=== PATIENT | female | born 1945 | race Caucasian/White ===

== ENCOUNTER 2019-11-16 07:30 | Outpatient (CLI) | payer MEDICARE, SELFPAY ==
--- NOTE | ~2019-11-16 | MM_ITS ---
EXAMINATION: MM screening [facility] w pavan HISTORY: Screening mammogram TECHNIQUE: Craniocaudal and mediolateral oblique 3-D tomosynthesis images were obtained and synthetic 2-D images were generated. Bilateral rotated lateral cc views. CAD analysis was submitted and interp reted. COMPARISON: 07/28/2018, 11/01/2016 bilateral digital screening mammogram examinations BREAST PARENCHYMAL COMPOSITION: The breasts are heterogeneously dense, which may obscure small masses . FINDINGS: Scattered benign calcifications are noted bilaterally. There is no evidence of suspicious m ass, calcification, or architectural distortion to suggest malignancy in either breast. There has bee n no suspicious interval change. IMPRESSION: 1. No mammographic evidence of malignancy. 2. Recommend routine screening mammography in one year. BI-RADS Category 2: Benign finding(s). Reviewed, dictated and finalized at location A.
== END 2019-11-16 07:31 | disposition home or self-care (01) ==
LOC: ANHIMG 07:33
PROVIDERS: PCP Family Medicine; Visit Provider Family Medicine
DX: Z12.31 Encounter for screening mammogram for malignant neoplasm of breast (principal)
CPT/HCPCS: 77063; 77067

== ENCOUNTER 2020-07-18 14:15 | Outpatient (CLI) | payer MEDICARE, SELFPAY ==
--- NOTE | ~2020-07-18 | XR_ITS ---
EXAMINATION: XR chest 2V DATE: 07/18/2020 15:01 INDICATION: Hypertension. Encounter for preprocedural respiratory examination. TECHNIQUE: Frontal and lateral views of the chest were obtained. COMPARISON: Chest 2 views 07/30/2009 FINDINGS: A calcified right lung nodule and calcified right hilar lymph nodes are consistent with old granulomatous disease. No pleural effusion or pneumothorax. The heart size is normal. There are surg ical clips in the abdomen. IMPRESSION: 1. No acute cardiopulmonary disease. Reviewed, dictated and finalized at location B.
--- NOTE | 2020-07-18 14:36 | ECG_ITS ---
Measurements Intervals Freedom Rate: 66 P: 79 VA: 187 QRS: 27 QRSD: 85 T: 65 QT: 392 QTc: 412 Interpretive Statements SINUS RHYTHM WITH SINUS ARRHYTHMIA POSSIBLE LEFT ATRIAL ENLARGEMENT CANNOT RULE OUT SEPTAL INFARCT, AGE INDETERMINATE BORDERLINE T WAVE ABNORMALITY- ANT/HIGH LAT LEADS BASELINE ARTIFACT- II, III, AVR, AVF ABNORMAL ECG Electronically Signed On 07-18-2020 14:47:38 CDT by Cam Hoang D.O.
== END 2020-07-18 14:16 | disposition home or self-care (01) ==
PROVIDERS: PCP Family Medicine; Visit Provider Family Medicine
DX: Z01.818 Encounter for other preprocedural examination (principal); R94.31 Abnormal electrocardiogram [ECG] [EKG]
CPT/HCPCS: 71046; 93005

== ENCOUNTER 2020-10-20 00:51 | Day surgery (SDC) | payer MEDICARE, SELFPAY ==
[2020-10-06 09:52] VITALS: BMI 22.2
[2020-10-20 07:28] VITALS: BP 131/66; PULSE 100; RESP 16; TEMP 36.2; O2SAT 96
[2020-10-20] MEDS: LACTATED RINGERS 1,000 ML 150 ML IV CONT (07:40)
[2020-10-20] MEDS: AMPICILLIN 2 GM/NS 100 ML 2 GM/100 ML BAG IVPB (07:41)
--- NOTE | 2020-10-20 08:05 | WPDANESEPPF ---
Anes - Initial Pre Proc Eval Procedure: Operation Date: 10/20/20 08:45 Proposed Procedures p Colonoscopy - Kael Mack MD Date/Time: 10/20/20 08:05 Surgeon: Kael Mack MD Pre Op Diagnosis: hx of colon polyps Patient Data Age: 75 Gender: F Height: 1.6 m Weight: 56.9 kg Last Vital Signs Temp 36.2 C L 10/20/20 07:28 Pulse 100 10/20/20 07:28 Resp 16 10/20/20 07:28 BP 131/66 10/20/20 07:28 Pulse Ox 96 10/20/20 07:28 Allergies Allergy/AdvReac Type Severity Reaction Status Date / Time Sulfa (Sulfonamide Allergy Rash Verified 10/20/20 07:27 Antibiotics) Latex, Natural Rubber AdvReac rash Verified 10/20/20 07:27 naproxen AdvReac Hives Verified 10/20/20 07:27 Home Medications Medication Instructions Recorded Confirmed Type cyclosporine 0.05 % eye drops 1 drop EACH EYE Q12H 07/27/19 10/20/20 History mesalamine 1,000 mg rectal 1 gm RECTAL DAILY PRN 07/27/19 10/20/20 History suppository atorvastatin 40 mg tablet 40 mg PO DAILY #90 tablet 04/26/20 10/20/20 Rx citalopram 20 mg tablet 20 mg PO DAILY #90 tablet 04/26/20 10/20/20 Rx indapamide 1.25 mg tablet 1.25 mg PO DAILY #90 tablet 04/26/20 10/20/20 Rx acetaminophen [Tylenol Arthritis 650 mg PO Q12H PRN 10/06/20 10/20/20 History Pain] amlodipine 10 mg PO DAILY 10/06/20 10/20/20 History Patient hx anesthesia problems: none Family hx anesthesia problems: none PMFSH Past Medical History Medical History (Updated 10/20/20 @ 08:08 by Eduar Marcum DO) Chronic kidney disease, stage III (moderate) Encounter for dual-energy x-ray absoptiometry review (~07/2013) H/O malignant neoplasm of colon (~2001) Hyperlipidemia Hypertension Malignant neoplasm of kidney, except pelvis (~2000) Surgical History Surgical History (Updated 07/20/20 @ 10:34 by Ingrid Méndez CMA) H/O colonoscopy (~11/2013) H/O hemicolectomy (~2001) History of left knee replacement (~2018) History of nephrectomy (~2000) History of total hysterectomy (~1982) Family History Family History Grandparent Diabetes mellitus Sibling Family history of rheumatoid arthritis Father Family history of elevated blood lipids Carcinoma of colon Family history of coronary artery disease Family history of Hodgkin's lymphoma Other Family history of cardiovascular disease Hypertension Social History Social History Smoking packs per day: 1 Smoking cigarettes per day: 20.0 Years smoked: 15 Smoking pack-years: 15.00 Smoking status: Former smoker Tobacco type: cigarettes Alcohol intake: current Living arrangements: with family Spiritual care concerns: No Anes - Eval Final PreProcedure Day of Procedure 10/20/20 08:05 Patient weight: normal Heart: regular rate and rhythm Lungs: clear to auscultation and normal air movement Airway: Mallampati scale class II Neurological: alert and oriented Last oral intake: >/= 8 hours ASA classification: III Emergent: no Anesthetic plan: proceed Anesthesia type and monitoring: general GIVS and standard monitoring Informed Consent: The patient's anesthetic plan and its attendant risks and benefits were discussed with the patient/family/POA. Questions were solicited and answers provided to the satisfaction of the patient/family/POA.
--- NOTE | 2020-10-20 08:31 | WPDGICN ---
Assessment and Plan Assessment and plan (1) History of colon polyps: Code(s): Z86.010 - Personal history of colonic polyps Status: Acute Assessment and Plan: Patient identified to have adenomatous colon polyp removed from the colon 2018. She presents today for surveillance follow-up colonoscopy. 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 She has been treated with intermittent Canasa suppositories taken as needed. This been less frequent over the last year. (3) H/O malignant neoplasm of colon: Onset Date: ~2001 Code(s): Z85.038 - Personal history of other malignant neoplasm of large intestine Status: Acute Assessment and Plan: Patient has a history of colon cancer status post resection. Appears to be adequately treated with no evidence of residual disease. Plan is for follow-up colonoscopy at 3-5 year intervals in the future. GI Consult Note Consult date/time: 10/20/20 08:31 HPI: Mira Stafford is a 75 year old female presents for surveillance colonoscopy. Patient has a history of colon cancer. Patient has undergone surveillance colonoscopies most recent exam in 2018. At that time she had a colon polyp. Patient received radiation therapy as part of her treatment for colon cancer. She has been identified as having radiation proctitis. Patient reports over the last year has very infrequently required Canasa suppositories. Her family history is noncontributory. She states her current weight appetite and bowel movements are normal. She presents for surveillance colonoscopy. Review of Systems Review of Systems: All systems reviewed & are unremarkable except as noted in HPI and below PMFSH Past Medical History Medical History (Updated 10/20/20 @ 08:33 by Kael Mack MD) Chronic kidney disease, stage III (moderate) Encounter for dual-energy x-ray absoptiometry review (~07/2013) H/O malignant neoplasm of colon (~2001) Hyperlipidemia Hypertension Malignant neoplasm of kidney, except pelvis (~2000) Surgical History Surgical History (Updated 07/20/20 @ 10:34 by Ingrid Méndez CMA) H/O colonoscopy (~11/2013) H/O hemicolectomy (~2001) History of left knee replacement (~2018) History of nephrectomy (~2000) History of total hysterectomy (~1982) Family History Family History Grandparent Diabetes mellitus Sibling Family history of rheumatoid arthritis Father Family history of elevated blood lipids Carcinoma of colon Family history of coronary artery disease Family history of Hodgkin's lymphoma Other Family history of cardiovascular disease Hypertension Social History Social History Smoking packs per day: 1 Smoking cigarettes per day: 20.0 Years smoked: 15 Smoking pack-years: 15.00 Smoking status: Former smoker Tobacco type: cigarettes Alcohol intake: current Living arrangements: with family Spiritual care concerns: No Meds Home Medications and Allergies Home Medications Medication Instructions Recorded Confirmed Type cyclosporine 0.05 % eye drops 1 drop EACH EYE Q12H 07/27/19 10/20/20 History mesalamine 1,000 mg rectal 1 gm RECTAL DAILY PRN 07/27/19 10/20/20 History suppository atorvastatin 40 mg tablet 40 mg PO DAILY #90 tablet 04/26/20 10/20/20 Rx citalopram 20 mg tablet 20 mg PO DAILY #90 tablet 04/26/20 10/20/20 Rx indapamide 1.25 mg tablet 1.25 mg PO DAILY #90 tablet 04/26/20 10/20/20 Rx acetaminophen [Tylenol Arthritis 650 mg PO Q12H PRN 10/06/20 10/20/20 History Pain] amlodipine 10 mg PO DAILY 10/06/20 10/20/20 History Allergies Allergy/AdvReac Type Severity Reaction Status Date / Time Sulfa (Sulfonamide Allergy Rash Verified 10/20/20
[2020-10-20 09:02] VITALS: BP 129/78; PULSE 87; RESP 22; O2SAT 99
[2020-10-20 09:12] VITALS: BP 125/78; PULSE 87; RESP 22; O2SAT 99
[2020-10-20 09:22] VITALS: BP 138/76; PULSE 81; RESP 17; O2SAT 95
== END 2020-10-20 09:28 | disposition home or self-care (01) ==
PROVIDERS: PCP Family Medicine; Visit Provider Internal Medicine Gastroenterology
PROC: 0DJD8ZZ Inspection of Lower Intestinal Tract, Via Natural or Artificial Opening Endoscopic (ICD-10-PCS; CPT 45378; principal; 2020-10-20 08:45)
DX: Z12.11 Encounter for screening for malignant neoplasm of colon (principal); K64.8 Other hemorrhoids; K62.7 Radiation proctitis; Y84.2 Radiological procedure and radiotherapy as the cause of abnormal reaction of the patient, or of later complication, without mention of misadventure at the time of the procedure; Z85.038 Personal history of other malignant neoplasm of large intestine; Z86.010 Personal history of colon polyps; I12.9 Hypertensive chronic kidney disease with stage 1 through stage 4 chronic kidney disease, or unspecified chronic kidney disease; N18.30 Chronic kidney disease, stage 3 unspecified; E78.5 Hyperlipidemia, unspecified; Z85.528 Personal history of other malignant neoplasm of kidney; Z90.49 Acquired absence of other specified parts of digestive tract; Z98.0 Intestinal bypass and anastomosis status; Z87.891 Personal history of nicotine dependence
CPT/HCPCS: G0105; J0290; J2704; J7120

== ENCOUNTER → 2021-11-22 10:56 | Outpatient (CLI) | payer MEDICARE, SELFPAY ==
--- NOTE | ~2021-11-22 | MM_ITS ---
EXAMINATION: MM screening [facility] w [facility] HISTORY: Screening TECHNIQUE: Craniocaudal and mediolateral oblique 3-D tomosynthesis images were obtained and synthetic 2-D images were generated. CAD analysis was submitted and interpreted. COMPARISON: Comparison to multiple prior studies sequentially, with oldest reviewed study dated 07/2013. BREAST PARENCHYMAL COMPOSITION: The breasts are extremely dense, which lowers the sensitivity of mamm ography FINDINGS: There is no evidence of suspicious mass, calcification, or architectural distortion to sugg est malignancy in either breast. There has been no suspicious interval change. IMPRESSION: 1. No mammographic evidence of malignancy. 2. Recommend routine screening mammography in one year. BI-RADS Category 1: Negative Reviewed, dictated and finalized at location A.
--- NOTE | ~2021-11-22 | DEXA_ITS ---
Bone Density Report Name: WARNER BEGUM Age: 76 Sex: Female Ethnicity: White Date of : 1945 Indication: postmenopausal; screening for osteoporosis; height loss; prior fracture; hysterectomy; Referring Provider: Rose Mary Pool Study: Bone densitometry was performed. Exam Date: November 22, 2021 Accession number: [id number] Bone Density: Region BMD T-score Z-score Classification AP Spine (L1-L4) 0.914 -1.2 1.2 Osteopenia Femoral Neck (Left) 0.587 -2.4 -0.3 Osteopenia Total Hip (Left) 0.734 -1.7 0.1 Osteopenia Femoral Neck (Right) 0.588 -2.4 -0.3 Osteopenia Total Hip (Right) 0.719 -1.8 -0.1 Osteopenia Total Hip Mean 0.727 -1.8 0.0 Osteopenia World Health Organization criteria for BMD impression classify patients as: Normal (T-score at or above -1.0), Osteopenia (T-score between -1.0 and -2.5), or Osteoporosis (T-score at or below -2.5). 10-year Fracture Risk(1): Major Osteoporotic Fracture 22% Hip Fracture 6.3% Reported Risk Factors: [place] (), Neck BMD=0.587, BMI=24.3, previous fracture (1) FRAX(R) Version 3.08. Fracture probability calculated for an untreated patient. Fracture probability may be lower if the patient has received treatment. Clinical Information Provided by Patient: Has had a low trauma fracture Has used the following medications: Vitamin D Has the following medical conditions: Hysterectomy, LT KIDNEY CANCER/ REMOVED Patient maximum height was 64 Menopause Age: 40 No regular weight bearing exercise Does not regularly consume dairy products Drinks caffeinated beverages Onset of menses at age 16 Number of children 0 Impression: The patient has low bone mass, based on the Left Femoral Neck T-score. The patient has an estimated ten-year risk of hip fracture of 6.3% and an estimated ten-year risk of major fracture of 22%, based on the WHO FRAX algorithm. The patient has risk factors, including: previous fracture. Discussion: BONE DENSITY IS LOW AT ONE OR MORE SKELETAL SITES. THE PATIENT'S BMD AND CLINICAL RISK FACTORS CONTRIBUTE TO THIS PATIENT'S HIGH RISK OF FRACTURE. This patient's lowest T-score is low at one or more skeletal sites. It meets the World Health Organization's (WHO) criteria for ?low bone mass? (T-score between -1.0 and -2.5). The patient's 10-year risk of hip fracture and 10 year risk of a major osteoporotic fracture as calculated by FRAX exceeds the threshold where pharmacological therapy is recommended by the National Osteoporosis Foundation (NOF). However, all treatment decisions require clinical judgment and consideration of individual patient factors, including patient preferences, comorbidities, previous drug use, risk factors not captured in the FRAX model (e.g., frailty, falls, vitamin D deficiency, increased bone turnover, interval significan
== END ==
PROVIDERS: PCP Family Medicine; Visit Provider Physician Assistant
DX: Z12.31 Encounter for screening mammogram for malignant neoplasm of breast (principal); Z78.0 Asymptomatic menopausal state; M85.88 Other specified disorders of bone density and structure, other site; M85.852 Other specified disorders of bone density and structure, left thigh; M85.851 Other specified disorders of bone density and structure, right thigh
CPT/HCPCS: 77063; 77067; 77080

== ENCOUNTER → 2021-11-27 09:23 | Outpatient (CLI) | payer MEDICARE, SELFPAY ==
--- NOTE | ~2021-11-27 | XR_ITS ---
XR tibia fibula LT 2V DATE: 11/27/2021 09:59 INDICATION: Left leg pain TECHNIQUE: AP and lateral views of the left lower leg COMPARISON: 11/27/2021 left ankle FINDINGS: Status post left medial compartment joint replacement. Osteopenia. No fracture, dislocation, periosteal reaction or bone destruction of the tibia or fibula. IMPRESSION: Osteopenia Status post medial compartment joint replacement Reviewed, dictated and finalized at location B.
--- NOTE | ~2021-11-27 | XR_ITS ---
XR ankle LT 2V DATE: 11/27/2021 09:59 INDICATION: Left leg and ankle pain TECHNIQUE: AP and lateral views of left ankle COMPARISON: None FINDINGS: There is osteopenia. No fracture or dislocation of the ankle or disruption of the ankle mortise. Mild posterior calcaneal enthesopathy. IMPRESSION: Osteopenia Mild posterior calcaneal enthesopathy Reviewed, dictated and finalized at location B.
== END ==
PROVIDERS: PCP Family Medicine; Visit Provider Nurse Practitioner
DX: M85.872 Other specified disorders of bone density and structure, left ankle and foot (principal); M77.32 Calcaneal spur, left foot
CPT/HCPCS: 73590; 73600

== ENCOUNTER → 2022-11-21 10:00 | Outpatient (CLI) | payer MEDICARE, SELFPAY ==
--- NOTE | ~2022-11-21 | XR_ITS ---
EXAMINATION: XR lumbar spine 2-3V DATE: 11/21/2022 10:10 INDICATION: Low back pain TECHNIQUE: Anteroposterior and lateral views of the lumbar spine, and cone-down lateral view of the l umbosacral junction were obtained. COMPARISON: None. FINDINGS: Bone alignment is normal. There is no fracture. There is moderate loss of intervertebral di sc space height at L2-3. The vertebral body heights are maintained. Small degenerative osteophytes pr oject from the anterior endplates of multiple vertebral bodies. There is mild facet joint osteoarthri tis of the lower lumbar spine. Calcified atherosclerosis is noted. There are surgical clips in the pe lvis and left upper quadrant. A moderate volume of colonic stool is present. IMPRESSION: 1. Moderate lumbar spondylosis at L2-3 without acute findings. Reviewed, dictated and finalized at location A.
== END ==
PROVIDERS: PCP Nurse Practitioner Family; Visit Provider Nurse Practitioner Family
DX: M47.816 Spondylosis without myelopathy or radiculopathy, lumbar region (principal)
CPT/HCPCS: 72100

== ENCOUNTER 2023-01-18 09:59 | Outpatient (CLI) | payer MEDICARE, SELFPAY ==
[2023-01-18 10:20] LABS: Basophils Absolute Auto 0.1 K/mm3 (0.0-0.1); Basophils Percent Auto 1.3 % (0.2-1.2); Eosinophils Absolute Auto 0.1 K/mm3 (0-0.3); Hematocrit 41.8 % (37.0-47.0); Hemoglobin 13.9 g/dL (12.0-15.0); Immature Granulocyte Absolute 0.01 K/mm3 (0.00-0.031); Immature Granulocyte Percent A 0.2 % (0-0.5); Lymphocytes Absolute Auto 1.53 K/mm3 (0.9-3.2); Lymphocytes Percent Auto 27.8 % (18.3-44.2); Mean Corpuscular HGB Conc 33.3 g/dl (32-36); Mean Corpuscular Hemoglobin 31.7 pg (26-34); Mean Corpuscular Volume 95.2 fl (80-100); Mean Platelet Volume 8.9 fl (7.4-10.4); Monocytes Absolute Auto 0.6 K/mm3 (0.1-0.6); Monocytes Percent Auto 10.3 % (2.6-8.5); Neutrophils Absolute Auto 3.2 K/mm3 (1.3-6.7); Neutrophils Percent Auto 58.4 % (45.5-73.1); Platelet Count Result 256 k/mm3 (150-375); Red Blood Count 4.39 M/mm3 (4.2-5.4); Red Cell Distribution Width 11.3 % (11.5-14.5); White Blood Count 5.5 K/mm3 (4.5-10.0)
[2023-01-18 11:01] LABS: Alanine Aminotransferase 19 U/L (6-35); Albumin Level 4.6 g/dL (3.5-5.1); Alkaline Phosphatase 54 U/L (38-126); Anion Gap 6 mmol/L (8-16); Aspartate Amino Transferase 30 U/L (14-36); Bilirubin,Total 0.7 mg/dL (0.2-1.3); Blood Urea Nitrogen 14 mg/dL (7-17); Calcium 9.6 mg/dL (8.4-10.2); Carbon Dioxide 34 mmol/L (22-30); Chloride 99 mmol/L (98-107); Cholesterol 200 mg/dL (0-200); Estimated Glomerular Filt Rate > 60; Glucose 97 mg/dL (65-110); HDL Direct 73 mg/dL; Potassium 3.3 mmol/L (3.4-5.0); Sodium 139 mmol/L (137-145); Triglycerides 261 mg/dL (<150)
[2023-01-18 11:12] LABS: LDL Cholesterol Direct 76 mg/dL
[2023-01-18 11:36] LABS: Vitamin D 25 Hydroxy 72.3 ng/mL
== END 2023-01-18 10:00 | disposition home or self-care (01) ==
PROVIDERS: PCP Family Medicine; Visit Provider Internal Medicine Hematology & Oncology
DX: E55.9 Vitamin D deficiency, unspecified (principal); E78.5 Hyperlipidemia, unspecified; M81.0 Age-related osteoporosis without current pathological fracture
CPT/HCPCS: 36415; 80053; 80061; 82306; 84443; 85025

== ENCOUNTER 2023-08-16 08:44 | Outpatient (CLI) | payer MEDICARE, SELFPAY ==
[2023-08-16 19:21] LABS: Erythrocyte Sedimentation Rate 13 mm/hr (0-20)
[2023-08-16 19:23] LABS: Rheumatoid Factor < 12.0 IU/ML (<12)
[2023-08-16 19:29] LABS: Anion Gap 9 mmol/L (4-12); Blood Urea Nitrogen 18 mg/dL (7-17); CRP < 0.5 mg/dL (<1.0); Calcium 9.9 mg/dL (8.4-10.2); Carbon Dioxide 30 mmol/L (22-30); Chloride 100 mmol/L (98-107); Estimated Glomerular Filt Rate > 60; Glucose 91 mg/dL (65-110); Potassium 3.3 mmol/L (3.4-5.0); Sodium 139 mmol/L (137-145)
[2023-08-19 14:02] LABS: ANA Cascade Screen NEGATIVE (NEGATIVE)
== END 2023-08-16 08:45 | disposition home or self-care (01) ==
LOC: ANHGOSHLAB 08:47
PROVIDERS: PCP Family Medicine; Visit Provider Nurse Practitioner Family
DX: M85.80 Other specified disorders of bone density and structure, unspecified site (principal); M25.50 Pain in unspecified joint; Z82.61 Family history of arthritis; Z79.899 Other long term (current) drug therapy
CPT/HCPCS: 36415; 80048; 84443; 85652; 86038; 86140; 86225; 86235; 86364; 86430

== ENCOUNTER 2023-10-22 14:47 | Outpatient (CLI) | payer MEDICARE, SELFPAY ==
--- NOTE | ~2023-10-22 | XR_ITS ---
EXAM: XR lumbar spine 2-3V DATE: 10/22/2023 15:07 HISTORY: NECK PAIN, LOW BACK PAIN . COMPARISON: 11/21/2022. FINDINGS: Surgical clips over the left mid abdomen and pelvis. Multiple suture lines over the pelvis. Atherosclerotic aortic calcification without evident aneurysm. Mild lumbar scoliosis. 5 nonrib-beari ng lumbar-type vertebral bodies. Pedicles intact. 2 mm retrolisthesis at L2-3. Vertebral body heights preserved. Multilevel disc space narrowing and marginal osteophytosis, severe at L2-3. Mild L4-5 and moderate L5-S1 facet hypertrophy. No fracture or dislocation. IMPRESSION: Mild scoliosis. Grade 1 retrolisthesis at L2-3. Severe degenerative disc disease at L2-3. Lower lumbar facet arthropathy. Reviewed, dictated and finalized at location K.
--- NOTE | ~2023-10-22 | XR_ITS ---
EXAM: XR_CERV2-3V_CR DATE: 10/22/2023 15:07 HISTORY: NECK PAIN, LOW BACK PAIN . COMPARISON: 07/31/2016. FINDINGS: Craniocervical association and atlantoaxial joint are aligned. Moderate degenerative nielsen e at the atlantodental interval. No prevertebral soft tissue swelling. Reversed lordosis, centered at C6-7. Stable grade 1 anterolistheses at C4-5 and C5-6. Vertebral body heights are maintained. Normal disc spaces. Multilevel degenerative disc changes, mild at C4-5, C5-6 and C7-T1, moderate at C6-7. M ultilevel moderate facet arthropathy. Possible facet fusion at C3-4. IMPRESSION: Multilevel stable grade 1 anterolistheses. Multilevel cervical degenerative disc disease, moderate at C6-7. Multilevel moderate facet arthropathy. Reviewed, dictated and finalized at location K. IMPRESSION: Multilevel stable grade 1 anterolistheses. Multilevel cervical dege nerative disc disease, moderate at C6-7. Multilevel moderate facet arthropathy.
== END 2023-10-22 14:48 ==
PROVIDERS: PCP Nurse Practitioner Family; Visit Provider Emergency Medicine Emergency Medical Services
DX: M41.9 Scoliosis, unspecified (principal); M51.36 Other intervertebral disc degeneration, lumbar region; M50.323 Other cervical disc degeneration at C6-C7 level
CPT/HCPCS: 72040; 72100

== ENCOUNTER 2023-12-19 11:02 | Outpatient (CLI) | payer MEDICARE, SELFPAY ==
--- NOTE | ~2023-12-19 | MM_ITS ---
EXAMINATION: MM screening [facility] BI w pavan HISTORY: Screening mammogram TECHNIQUE: Craniocaudal and mediolateral oblique 3-D tomosynthesis images were obtained and synthetic 2-D images were generated. CAD analysis was submitted and interpreted. COMPARISON: 11/22/2021, 11/16/2019, 07/28/2018 BREAST PARENCHYMAL COMPOSITION:Dense: The breasts are heterogeneously dense, which may obscure small masses. FINDINGS: No suspicious mass, calcification, or architectural distortion are identified in either suzie ast to suggest malignancy. There has been no suspicious interval change. IMPRESSION: No mammographic evidence of malignancy. Recommend routine screening mammography in one year. BI-RADS Category 1: Negative Reviewed, dictated and finalized at location .
== END 2023-12-19 11:03 | disposition home or self-care (01) ==
LOC: MICIMG 11:02
PROVIDERS: PCP Nurse Practitioner Family; Visit Provider Nurse Practitioner Family
DX: Z12.31 Encounter for screening mammogram for malignant neoplasm of breast (principal)
CPT/HCPCS: 77063; 77067

== ENCOUNTER 2023-12-23 13:15 | Outpatient (CLI) | payer MEDICARE, SELFPAY ==
--- NOTE | ~2023-12-23 | DEXA_ITS ---
Bone Density Report Name: WARNER BEGUM Age: 78 Sex: Female Ethnicity: White Date of : 1945 Indication: osteopenia; height loss; prior fracture; cancer; hysterectomy; Referring Provider: JEFF JOSE Study: Bone densitometry was performed. Exam Date: December 23, 2023 Accession number: [id number] Bone Density: Region BMD T-score Z-score Classification AP Spine(L1-L4) 0.979 -0.6 1.9 Normal Femoral Neck (Left) 0.584 -2.4 -0.2 Osteopenia Total Hip (Left) 0.711 -1.9 0.0 Osteopenia Femoral Neck (Right) 0.589 -2.3 -0.2 Osteopenia Total Hip (Right) 0.724 -1.8 0.1 Osteopenia Total Hip Mean 0.718 -1.9 0.1 Osteopenia World Health Organization criteria for BMD impression classify patients as: Normal (T-score at or above -1.0), Osteopenia (T-score between -1.0 and -2.5), or Osteoporosis (T-score at or below -2.5). 10-year Fracture Risk(1): Major Osteoporotic Fracture 23% Hip Fracture 6.9% Reported Risk Factors: [place] (), Neck BMD=0.584, BMI=23.9, previous fracture (1) FRAX(R) Version 3.08. Fracture probability calculated for an untreated patient. Fracture probability may be lower if the patient has received treatment. Previous Exams: Region Exam Age BMD T-score BMD Change BMD Change Date g/cm2 vs Baseline vs Previous AP Spine (L1-L4) 12/23/2023 78 0.979 -0.6 0.088 (9.9%)* 0.088 (9.9%)* 01/02/2019 73 0.891 -1.4 Total Hip(Left) 12/23/2023 78 0.711 -1.9 -0.047 (-6.2%) -0.047 (-6.2%) 01/02/2019 73 0.758 -1.5 Total Hip(Right) 12/23/2023 78 0.724 -1.8 -0.043 (-5.6%) -0.043 (-5.6%) 01/02/2019 73 0.767 -1.4 *Denotes significance at 95% confidence level, LSC for AP Spine = 0.022 g/cm2, LSC for Total Hip = 0.027 g/cm2 Clinical Information Provided by Patient: Has had a low trauma fracture Has used the following medications: Vitamin D Has the following medical conditions: Cancer, Hysterectomy, RENAL AND COLON CA Patient maximum height was 64.0 Menopause Age: 47 Drinks caffeinated beverages Onset of menses at age 14 Number of children 0 Impression: The patient has low bone mass, based on the Left Femoral Neck T-score. The patient has an estimated ten-year risk of hip fracture of 6.9% and an estimated ten-year risk of major fracture of 23%, based on the WHO FRAX algorithm. The patient has risk factors, including: previous fracture. The BMD for the Total Hip(Left) decreased, changing
== END 2023-12-23 13:16 | disposition home or self-care (01) ==
LOC: ANHIMG 13:16
PROVIDERS: PCP Nurse Practitioner Family; Visit Provider Nurse Practitioner Family
DX: Z78.0 Asymptomatic menopausal state (principal); M81.0 Age-related osteoporosis without current pathological fracture; M85.852 Other specified disorders of bone density and structure, left thigh; M85.851 Other specified disorders of bone density and structure, right thigh
CPT/HCPCS: 77080

== ENCOUNTER 2024-01-08 14:26 | Outpatient (CLI) | payer MEDICARE, SELFPAY ==
--- NOTE | ~2024-01-08 | MR_ITS ---
EXAMINATION: MR lumbar spine wo con DATE: 01/08/2024 15:02 INDICATION: Low back pain. TECHNIQUE: Magnetic resonance imaging (MRI) of the lumbar spine was performed without intravenous con trast. Sequences included sagittal T2-weighted FSE, sagittal T2-weighted FS FSE, sagittal T1-weighted FSE, and axial T2-weighted FSE. COMPARISON: Lumbar spine radiograph 10/22/2023 FINDINGS: There is 5 degrees levocurvature of lumbar spine. Vertebral body heights are normal. There is mildly decreased disc height at L1-L2, severely decreased disc height at L2-L3, and moderately dec reased disc height at L4-L5 and L5-S1. The distal spinal cord signal intensity is normal. The conus m edullaris is at L1. The following disc levels are specifically discussed: L1-L2: The disc is bulging with superimposed right subarticular zone extrusion. There is mild bilater al facet joint osteoarthritis. There is no neural foraminal stenosis. There is mild central canal aure nosis. L2-L3: The disc is bulging. There is moderate right and mild left facet joint osteoarthritis. There i s mild bilateral neural foraminal stenosis. There is mild central canal stenosis. L3-L4: The disc is bulging. There is severe right and mild left facet joint osteoarthritis. There is mild bilateral neural foraminal stenosis. There is mild central canal stenosis. L4-L5: The disc is bulging with superimposed left central extrusion. There is moderate bilateral face t joint osteoarthritis. There is mild right and moderate left neural foraminal stenosis. There is mil d central canal stenosis. There is moderate stenosis of left lateral recess. L5-S1: The disc is bulging. There is severe right and moderate left facet joint osteoarthritis. There is mild right and moderate left neural foraminal stenosis. There is mild central canal stenosis. IMPRESSION: 1. Severe lumbar spondylosis. Reviewed, dictated and finalized at location A.
== END 2024-01-08 14:27 | disposition home or self-care (01) ==
LOC: MICIMG 14:27
PROVIDERS: PCP Family Medicine; Visit Provider Nurse Practitioner Family
DX: M47.816 Spondylosis without myelopathy or radiculopathy, lumbar region (principal)
CPT/HCPCS: 72148

== ENCOUNTER 2024-01-27 14:11 | Outpatient (CLI) | payer MEDICARE, SELFPAY ==
--- NOTE | ~2024-01-27 | MR_ITS ---
MRI of the cervical spine Clinical History: Neck pain, radiculopathy Technique: Axial T2-weighted and gradient images, and sagittal T1-weighted, T2-weighted, and STIR ashley ges were acquired. Findings: No acute fracture seen. There is 3 mm anterolisthesis of C4 over C5. No suspicious bone mar row signal abnormality seen. There is minimal reversal of the normal cervical lordosis. At C2-C3, there is no disc bulge or herniation. No spinal canal stenosis, cord compression, or neural foraminal narrowing. At C3-C4, there is no disc bulge or herniation. No spinal canal stenosis, cord compression, or neural foraminal narrowing. At C4-C5, there is mild canal stenosis with minimal disc osteophyte complex. There is bilateral facet arthropathy is bilateral neural foraminal narrowing, left worse than right. At C5-C6, there is mild canal stenosis with minimal disc osteophyte complex. There is bilateral facet arthropathy, with bilateral neural foraminal narrowing, left worse than right. At C6-C7, there is degenerative disc narrowing with disc osteophyte complex, resulting in moderate ca nal stenosis but no jerry cord compression. There is advanced bilateral neural foraminal narrowing. No abnormal signal seen in the spinal cord. Paravertebral soft tissues are unremarkable. Impression: Advanced degenerative spondylosis at C6-C7, as detailed above. Mild to moderate degenerative change of the remainder of the cervical spine, as above. 3 mm anterolisthesis of C4 over C5. Reviewed, dictated and finalized at [facility]. Impression: Advanced degenerative spondylosis at C6-C7, as detailed above. Mild to moderate degenerative change of the remainder of the cervical spine, as above. 3 mm anterolisthesis of C4 over C5.
== END 2024-01-27 14:12 | disposition home or self-care (01) ==
LOC: GOSHIMG 14:12
PROVIDERS: PCP Family Medicine; Visit Provider Nurse Practitioner Family
DX: M47.22 Other spondylosis with radiculopathy, cervical region (principal)
CPT/HCPCS: 72141

== ENCOUNTER 2024-12-21 12:18 | Outpatient (CLI) | payer MEDICARE, SELFPAY ==
--- NOTE | ~2024-12-21 | MM_ITS ---
EXAMINATION: MM screening [facility] BI w pavan HISTORY: Screening TECHNIQUE: Craniocaudal and mediolateral oblique 3-D tomosynthesis images were obtained and synthetic 2-D images were generated. CAD analysis was submitted and interpreted. COMPARISON: Comparison to multiple prior studies sequentially, with oldest reviewed study dated 11/01/2016. BREAST PARENCHYMAL COMPOSITION: The breasts are heterogeneously dense, which may obscure small masses. FINDINGS: There is no evidence of suspicious mass, calcification, or architectural distortion to suggest malignancy in either breast. Scattered benign-appearing calcifications are present. IMPRESSION: 1. No mammographic evidence of malignancy. 2. Recommend routine screening mammography in one year. BI-RADS Category 2: Benign finding(s). Reviewed, dictated and finalized at location B.
== END 2024-12-21 12:19 | disposition home or self-care (01) ==
LOC: MICIMG 12:19
PROVIDERS: PCP Family Medicine; Visit Provider Nurse Practitioner Family
DX: Z12.31 Encounter for screening mammogram for malignant neoplasm of breast (principal)
CPT/HCPCS: 77063; 77067